=== PATIENT | female | born 1995 | race Hispanic/Latino ===

== ENCOUNTER 2016-12-17 10:11 | Inpatient (IN) | payer OTHER ==
[~2016-12-17] VITALS: Ht 154.9 cm; Wt 54.4 kg
[2016-12-17] VITALS (15 sets, daily range): BP systolic 114–142; BP diastolic 73–99
[2016-12-17] MEDS ORDERED: D5 LR IV SOLUTION 1,000 ML IV ONE (10:14)
[2016-12-17] MEDS ORDERED: OXYTOCIN/NORMAL SALINE 500 ML IV ONE (11:27)
[2016-12-17] MEDS ORDERED: KETOROLAC 30 MG/ML VIAL ONE (11:28)
[2016-12-17] MEDS: KETOROLAC 30 MG/ML VIAL IVP SCH ×2 (11:30→20:17)
[2016-12-17] MEDS ORDERED: OXYTOCIN/NORMAL SALINE 500 ML IV SCH ×2 (11:39)
[2016-12-17] MEDS ORDERED: WITCH HAZEL(TUCKS) 40 EA JAR TOP PRN (11:45)
[2016-12-17] MEDS ORDERED: BENZOCAINE/MENTHOL (DERMOPLAST) 56 ML CAN TP PRN (11:45)
[2016-12-17] MEDS ORDERED: TETANUS,DIPTH,PERTUSS P/F (BOOSTRIX) 0.5 ML VIAL IM ONE (11:45)
[2016-12-17] MEDS ORDERED: oxyCODONE/APAP 5/325MG (PERCOCET 5) TABLET PO PRN (11:45)
[2016-12-17] MEDS ORDERED: METHYLERGONOVINE 0.2 MG/ML (METHERGINE) AMP IM ONE (11:45)
[2016-12-17] MEDS ORDERED: MEASLES,MUMPS,RUBELLA 1 EA INJ SQ ONE (11:45)
[2016-12-17] MEDS ORDERED: METHYLERGONOVINE 0.2 MG/ML (METHERGINE) AMP ONE (11:47)
[2016-12-17 12:10] LABS: BASOPHILS % (AUTO) 0 % (0-10); EOSINOPHILS # (AUTO) 0.1 10^3/uL (0.0-0.3); EOSINOPHILS % (AUTO) 0 % (0-10); LYMPHOCYTES # (AUTO) 1.3 X 10^3 (1.0-4.0); LYMPHOCYTES % (AUTO) 7 % (12-44); MEAN CORPUSCULAR HEMOGLOBIN 30 PG (25-34); MEAN CORPUSCULAR HGB CONC 35 G/DL (32-36); MEAN CORPUSCULAR VOLUME 87 FL (80-99); MEAN PLATELET VOLUME 11.4 FL (7.4-10.4); MONOCYTES # (AUTO) 0.8 X 10^3 (0.0-1.0); MONOCYTES % (AUTO) 4 % (0-12); NEUTROPHILS # (AUTO) 16.6 X 10^3 (1.8-7.8); NEUTROPHILS % (AUTO) 89 % (42-75); PLATELET COUNT 226 10^3/uL (130-400); RED BLOOD COUNT 4.58 10^6/uL (4.35-5.85); RED CELL DISTRIBUTION WIDTH 13.2 % (10.0-14.5); WHITE BLOOD COUNT 18.8 10^3/uL (4.3-11.0)
[2016-12-17] MEDS ORDERED: PNV91TAB3 PO (12:43)
[2016-12-17] MEDS ORDERED: FLU TRIvalent (5 YOA+) 2016-17 (AFLURIA) 0.5 ML IM ONE (13:45)
[2016-12-17] MEDS: CATHETER FLUSH 10 ML SYR IV SCH ×2 (14:00→22:00)
[2016-12-17 16:03] LABS: ALBUMIN 3.1 G/DL (3.2-4.5); BILIRUBIN,DIRECT 0.2 MG/DL (0.0-0.3); BILIRUBIN,INDIRECT 0.2 MG/DL; BILIRUBIN,TOTAL 0.4 MG/DL (0.1-1.0); TOTAL PROTEIN 5.8 G/DL (6.4-8.2)
[2016-12-17 16:23] LABS: THYROID STIMULATING HORMONE 2.1 UIU/ML (0.35-4.94)
--- NOTE | 2016-12-17 17:04 | History & Physical ---
History and Physical this patient is a 21-year-old [place] female who presented to labor and delivery this morning in active labor. she was completely dilated with a bulging bag of vertex presentation admission. She had no local physician. She was noted to the area. She spoke no German. A male friend of a friend accompanied her and interpreted. Gave reported having care in [facility], and reported no problems with the other than an episode of contractions that resolved. The patient was writhing in pain. An IV was placed. The delivery as I was in the local physician on-call for patient with no local physician. Exam was performed finding a completely dilated cervix with a bulging bag vertex presentation at the +1 station. Cervix was 100 percent effaced. monitor showed contractions every 3-4 minutes. There was variable deceleration with a contraction. Otherwise the heart rate pattern was reassuring. Amniotomy was performed with the moderate stained meconium fluid. The patient pushed with the next 2 or 3 contractions promptly delivering a viable female over the perineum sustained a second-degree laceration. The was bulb suctioned on delivery of the head and again on completion of delivery. Infant had spontaneous cry was quickly pink moved all extremities had excellent tone and reflexes. The heart rate was quickly over 100 on delivery. The patient requested that the baby be taken to the warmer which was done. Dr. David was available shortly after delivery to manage the . see delivery note for balance of the details. No lab work are records were available for this patient. Allergies were none Medications reported were none Past medical history is unclear as the patient did not speak German and her friend did not know Past obstetric history included 1 term spontaneous vaginal delivery Surgical history was unclear as the friend did not know Family history is unknown to me Social history is unknown to make . the patient is well-developed well-nourished [place] female who was in acute distress in advanced labor HEENT exam appeared normal Neck appeared supple Abdomen was gravid Extremities show no clubbing or cyanosis. Pelvic exam is as noted above. the patient promptly delivered a term spontaneous vaginal female infant - see the delivery note Laboratory Tests Test 12/17/16 11:49 12/17/16 16:50 Range/Units Alanine Aminotransferase (ALT/SGPT) 19 0-55 U/L Albumin 3.1 L 3.2-4.5 G/DL Alkaline Phosphatase 281 H 40-136 U/L Aspartate Amino Transf (AST/SGOT) 26 5-34 U/L Basophils # (Auto) 0.0 0.0-0.1 10^3/uL Basophils (%) (Auto) 0 0-10 % Direct Bilirubin 0.2 0.0-0.3 MG/DL Eosinophils # (Auto) 0.1 0.0-0.3 10^3/uL Eosinophils (%) (Auto) 0 0-10 % Hematocrit 40 35-52 % Hemoglobin 13.8 11.5-16.0 G/DL Indirect Bilirubin 0.2 MG/DL Lymphocytes # (Auto) 1.3 1.0-4.0 X 10^3 Lymphocytes (%) (Auto) 7 L 12-44 % Mean Corpuscular Hemoglobin 30 25-34 PG Mean Corpuscular Hemoglobin Concent 35 32-36 G/DL Mean Corpuscular Volume 87 80-99 FL Mean Platelet Volume 11.4 H 7.4-10.4 FL Monocytes # (Auto) 0.8 0.0-1.0 X 10^3 Monocytes (%) (Auto) 4 0-12 % Neutrophils # (Auto) 16.6 H 1.8-7.8 X 10^3 Neutrophils (%) (Auto) 89 H 42-75 % Platelet Count 226 130-400 10^3/uL Red Blood Count 4.58 4.35-5.85 10^6/uL Red Cell Distribution Width 13.2 10.0-14.5 % Thyroid Stimulating Hormone (TSH) 2.10 0.35-4.94 UIU/ML Total Bilirubin 0.4 0.1-1.0 MG/DL Total Protein 5.8 L 6.4-8.2 G/DL White Blood Count 18.8 H 4.3-11.0 10^3/uL Lab work is as noted Vital Signs Date Time Temp Pulse Resp B/P Pulse Ox O2 Delivery O2 Flow Rate FiO2 12/17/16 13:13 78 127/83 Room Air 12/17/16 12:43 81 131/87 Room Air 12/17/16 12:35 82 18 132/84 Room Air 12/17/16 12:31 84 141/96 Room Air 12/17/16 12:15 83 133/99 Room Air 12/17/16 12:00 97.2 80 18 134/89 Room Air 12/17/16 11:45 80 18 134/89 Room Air 12/17/16 11:30 80 124/80 Room Air 12/17/16 11:15 97.7 82 18 124/83 Room Air 12/17/16 11:00 78 120/81 Room Air 12/17/16 10:45 83 130/87 Room Air 12/17/16 10:27 94 18 142/86 Room Air Vitals are as noted Assessment and plan term with no local physician in advanced labor with delivery eminent that has now been accomplished. Patient currently is several hours and is ambulating and voiding. Her infant has been transferred to [facility] patient will be allowed discharge this evening or in the morning as she prefers precipitous term spontaneous vaginal delivery at 40 weeks and 4 days Allergies and Home Medications Allergies Coded Allergies: No Known Drug Allergies (Unverified , 12/17/16) Home Medications Pnv95/Ferrous Fumarate/FA 1 Each Tablet 1 EACH PO DAILY (Reported) Clinical Quality Measures DVT/VTE Risk/Contraindication: RFS Level Per Nursing on Admit: 0=No Risk/No VTE PPX LYDIA REYES MD Dec 17, 2016 5:04 pm
[2016-12-17] MEDS ORDERED: OXYC-471 PO (17:05)
[2016-12-17] MEDS ORDERED: IBUP-1780 PO (17:05)
[2016-12-17] MEDS ORDERED: DOCU100C37 PO (17:05)
--- NOTE | 2016-12-17 17:07 | Discharge Instructions ---
Discharge Instructions Discharge Medications New, Converted or Re-Newed RX: RX on Chart Patient Instructions Patient Instructions: as directed Return to The Hospital For: as directed Activity & Diet Discharge Diet: No Restrictions Activity as Tolerated: No Orders-Post D/C & Referrals Follow Up Appt: Call to make follow up appt. for patient in 4 weeks with my clinic Activity Per routine post vaginal delivery instructions. Diet as tolerated Patient may shower or tub bathe as desired. LYDIA REYES MD Dec 17, 2016 5:06 pm
[2016-12-17] MEDS: DOCUSATE SODIUM 100 MG (COLACE) CAP PO SCH (20:17)
[2016-12-18 03:26] VITALS: BP 106/71
[2016-12-18] MEDS: KETOROLAC 30 MG/ML VIAL IVP SCH (03:26)
[2016-12-18] MEDS: CATHETER FLUSH 10 ML SYR IV SCH (03:26)
[2016-12-18 08:00] VITALS: BP 125/84
[2016-12-18] MEDS: DOCUSATE SODIUM 100 MG (COLACE) CAP PO SCH (08:19)
--- NOTE | 2016-12-18 10:34 | Progress Note-Standard ---
Standard Progress Note Progress Notes/Assess & Plan Progress/Assessment & Plan patient without complaint. She is ambulating, voiding, tolerating by mouth well. Laboratory Tests Test 12/17/16 11:49 12/17/16 16:50 Range/Units Alanine Aminotransferase (ALT/SGPT) 19 0-55 U/L Albumin 3.1 L 3.2-4.5 G/DL Alkaline Phosphatase 281 H 40-136 U/L Aspartate Amino Transf (AST/SGOT) 26 5-34 U/L Basophils # (Auto) 0.0 0.0-0.1 10^3/uL Basophils (%) (Auto) 0 0-10 % Direct Bilirubin 0.2 0.0-0.3 MG/DL Eosinophils # (Auto) 0.1 0.0-0.3 10^3/uL Eosinophils (%) (Auto) 0 0-10 % Hematocrit 40 35-52 % Hemoglobin 13.8 11.5-16.0 G/DL Indirect Bilirubin 0.2 MG/DL Lymphocytes # (Auto) 1.3 1.0-4.0 X 10^3 Lymphocytes (%) (Auto) 7 L 12-44 % Mean Corpuscular Hemoglobin 30 25-34 PG Mean Corpuscular Hemoglobin Concent 35 32-36 G/DL Mean Corpuscular Volume 87 80-99 FL Mean Platelet Volume 11.4 H 7.4-10.4 FL Monocytes # (Auto) 0.8 0.0-1.0 X 10^3 Monocytes (%) (Auto) 4 0-12 % Neutrophils # (Auto) 16.6 H 1.8-7.8 X 10^3 Neutrophils (%) (Auto) 89 H 42-75 % Platelet Count 226 130-400 10^3/uL Red Blood Count 4.58 4.35-5.85 10^6/uL Red Cell Distribution Width 13.2 10.0-14.5 % Thyroid Stimulating Hormone (TSH) 2.10 0.35-4.94 UIU/ML Total Bilirubin 0.4 0.1-1.0 MG/DL Total Protein 5.8 L 6.4-8.2 G/DL White Blood Count 18.8 H 4.3-11.0 10^3/uL Ur Tricyclic Antidepressants Screen NEGATIVE NEGATIVE Urine Amphetamines Screen NEGATIVE NEGATIVE Urine Barbiturates Screen NEGATIVE NEGATIVE Urine Benzodiazepines Screen NEGATIVE NEGATIVE Urine Cannabinoids Screen NEGATIVE NEGATIVE Urine Cocaine Screen NEGATIVE NEGATIVE Urine Methadone Screen NEGATIVE NEGATIVE Urine Methamphetamines Screen NEGATIVE NEGATIVE Urine Opiates Screen NEGATIVE NEGATIVE Urine Oxycodone Screen POSITIVE H NEGATIVE Urine Phencyclidine Screen NEGATIVE NEGATIVE Urine Propoxyphene Screen NEGATIVE NEGATIVE Vital Signs Date Time Temp Pulse Resp B/P Pulse Ox O2 Delivery O2 Flow Rate FiO2 12/18/16 08:00 98.1 70 18 125/84 100 Room Air 12/18/16 03:26 97.4 73 18 106/71 97 Room Air 12/17/16 23:35 97.4 71 18 114/73 98 Room Air 12/17/16 20:17 97.9 83 18 124/84 99 Room Air 12/17/16 15:00 97.8 82 18 116/77 98 Room Air 12/17/16 13:13 78 127/83 Room Air 12/17/16 12:43 81 131/87 Room Air 12/17/16 12:35 82 18 132/84 Room Air 12/17/16 12:31 84 141/96 Room Air 12/17/16 12:15 83 133/99 Room Air 12/17/16 12:00 97.2 80 18 134/89 Room Air 12/17/16 11:45 80 18 134/89 Room Air 12/17/16 11:30 80 124/80 Room Air 12/17/16 11:15 97.7 82 18 124/83 Room Air 12/17/16 11:00 78 120/81 Room Air 12/17/16 10:45 83 130/87 Room Air Vital signs are stable. Patient afebrile. Fundus is firm below the umbilicus and nontender. Extreme show no clubbing or cyanosis. There is no Homans sign. Assessment and plan day number 1 status post term spontaneous vaginal delivery at 40+ weeks gestation. This patient's baby has been transferred to [place]. Patient will be discharged so that she might visit her baby. Final Diagnosis term spontaneous vaginal delivery at 40+ weeks LYDIA REYES MD Dec 18, 2016 10:33 am
[2016-12-18] MEDS ORDERED: TETANUS,DIPTH,PERTUSS P/F (BOOSTRIX) 0.5 ML VIAL IM ONE (11:11)
[2016-12-18] MEDS ORDERED: FLU TRIvalent (5 YOA+) 2016-17 (AFLURIA) 0.5 ML IM ONE (11:14)
[2016-12-18] MEDS ORDERED: IBUPROFEN 800 MG (MOTRIN) TAB PO SCH (11:45)
[2016-12-18 12:25] VITALS: BP 125/84
--- NOTE | 2016-12-19 14:48 | PROCEDURE REPORT ---
PROCEDURE PHYSICIAN: LYDIA REYES DATE OF DELIVERY: 12/17/2016 The patient delivered by apparent term spontaneous vaginal delivery of a viable female with Apgars of 8 and 9 at one and five minutes respectively. The infant weighed 7 pounds 11 ounces. Cord blood was obtained that value was not available to me for the pH. Delivery time was 1015. The patient delivered by term spontaneous vaginal delivery viable female over a second-degree perineal laceration under no analgesia. The presented completely dilated, had a precipitous delivery. I was called for delivery management as I was the no local physician for patient physician incident response specialist. The patient was found in the LDR room, writhing in pain completely dilated. An IV had just been placed. The patient was feeling a strong urge to push and was apparently doing so. She did not speak [place]. She had a friend with her that interpreted. The patient had amniotomy performed with moderate amniotic fluid meconium changes. The patient pushed 3 times and delivered a viable female infant over a second-degree perineal laceration. The infant was bulb suctioned on delivery of the head again on completion of delivery. The cord was doubly clamped and the taken to the warmer as the patient did not wish to hold the baby at that time. Dr. David was on hand and managed the baby from this point. The had Apgars of 8 and 9 at one and five minutes respectfully. Weight was 7 pounds 11 ounces. time was 1015. Cord blood gas was obtained. The cord bloods were obtained including a cord gas pH. The placenta delivered spontaneously Pined[place]. It was a heavily calcified but otherwise normal. It was sent to pathology for permanent section. The cervix, vagina, rectum and perineum were examined and found intact except for the peritoneal laceration of the second-degree that was repaired with a single suture of 3-0 Vicryl under local analgesia using 1% lidocaine with epinephrine in her perineum. Sponge and needle counts were correct on completion of delivery and repair. Estimated blood loss was around 150 mL for the delivery and repair. The patient tolerated delivery and repair well and remained in the LDR for recovery. The was taken to the nursery under the care of Dr. David. Job ID: [id number] Dictated Date: 12/17/2016 16:55:08 Modeling Director Date: 12/19/2016 14:42:55 / erwin
[2016-12-20 14:26] LABS: RAPID PLASMA REAGIN Non Reactive
[2016-12-21 07:54] LABS: HIV 1/2 INTERP See Footnote; HIV AG AB SCREEN Non-Reactive (Non-Reactive)
== END 2016-12-18 12:25 | disposition home or self-care (01) | DRG 775 ==
LOC: WSo 10:11 → LDRP 10:14 → WSo 10:20 → LDRP 14:49 → WS 17:35
PROVIDERS: ADMIT Obstetrics & Gynecology; ATTEND Obstetrics & Gynecology
PROC: 10E0XZZ Delivery of Products of Conception, External Approach (ICD-10-PCS; principal; 2016-12-17)
PROC: 0KQM0ZZ Repair Perineum Muscle, Open Approach (ICD-10-PCS; 2016-12-17)
DX: O48.0 Post-term pregnancy (principal); O70.1 Second degree perineal laceration during delivery; O76 Abnormality in fetal heart rate and rhythm complicating labor and delivery; O77.0 Labor and delivery complicated by meconium in amniotic fluid; O62.3 Precipitate labor; Z3A.40 40 weeks gestation of pregnancy; Z37.0 Single live birth; Z23 Encounter for immunization
CPT/HCPCS: 36415; 80076; 80306; 84443; 85025; 86592; 86703; 86762; 86780; 86850; 86900; 86901; 88307; 90715; 99212

== ENCOUNTER → 2017-06-08 | Outpatient (CLI) | payer SELFPAY ==
[~2017-06-08] MED LIST: DOCU100C37 PO; IBUP-1780 PO; OXYC-471 PO; PNV91TAB3 PO
== END ==
LOC: RAD 15:53
PROVIDERS: ATTEND Family Medicine
DX: Z34.80 Encounter for supervision of other normal pregnancy, unspecified trimester (principal); Z3A.00 Weeks of gestation of pregnancy not specified; Z53.29 Procedure and treatment not carried out because of patient's decision for other reasons

== ENCOUNTER → 2017-06-14 | Outpatient (CLI) | payer OTHER ==
--- NOTE | 2017-06-14 18:45 | Diagnostic Imaging Report ---
INDICATION: Uncertain dates. TECHNIQUE: Multiple real-time grayscale images were obtained over the gravid uterus. COMPARISON: None. COMPARISON: There are no prior studies available for comparison. FINDINGS: There is a single live fetus in variable presentation. heart motion was noted, and a rate of 138 BPM was recorded. The crown-rump length suggests the estimated gestational age is 15 weeks 5 days, +/-1 week. There were no obvious abnormalities identified. However, it may prove worthwhile to have a short-term (4-6 week) followup ultrasound exam for a more sensitive evaluation of the anatomy. The placenta is posterior, and there is no previa. The amniotic fluid volume is within normal limits. The cervix was identified and measures 4.2 CM in length. IMPRESSION: 1. There is a single live fetus of approximately 15 weeks 5 days gestation, +/-1 week. The EDC is December 21, 2017. 2. There were no obvious abnormalities identified. Recommendations as above. 3. The growth parameters are fairly uniform. Biometrical measurements are as follows: Biparietal 3.26 cm, age 16 weeks 2 days. Head circumference 11.79 cm, age 15 weeks 6 days. Abdominal circumference 8.97 cm, age 15 weeks 2 days. Femur length 1.74 cm, age 15 weeks 2 days. Sonographic estimate age: 15 weeks 5 days. Sonographic estimated date of delivery: 12/01/2017. Estimated Weight: 119 gm (+/- 17 gm). LMP percentile: N/A%. heart rate: 138 beats per minute. number: 1 of 1. Dictated by: Dictated on workstation # [id number]
== END ==
LOC: RAD 10:17
PROVIDERS: ATTEND Family Medicine
DX: Z36 Encounter for antenatal screening of mother (principal); Z3A.15 15 weeks gestation of pregnancy
CPT/HCPCS: 76805

== ENCOUNTER → 2017-07-28 | Outpatient (CLI) | payer OTHER ==
--- NOTE | 2017-07-28 16:39 | Diagnostic Imaging Report ---
INDICATION: survey. TECHNIQUE: Multiple real-time grayscale images were obtained over the gravid uterus. COMPARISON: 06/14/2017. FINDINGS: heart rate is 138 beats per minute. The cervix is 4.5 cm in length and is closed. The placenta is posterior with no placenta previa. The posterior fossa, lateral ventricles, stomach, urinary bladder, cord insertion, and the spine appear unremarkable. The three-vessel cord is not well evaluated due to position. The four-chamber view appears unremarkable. Biometrical measurements are as follows: Biparietal 5.15 cm, age 21 weeks 5 days. Head circumference 18.836 cm, age 21 weeks 1 days. Abdominal circumference 17.6 cm, age 22 weeks 4 days. Femur length 3.6 cm, age 21 weeks 3 days. Sonographic estimate age: 21 weeks 5 days. Sonographic estimated date of delivery: 12/03/2017. Estimated Weight: 461 gm (+/- 67 gm). LMP percentile: 39%. heart rate: 138 beats per minute. number: 1 of 1. IMPRESSION: Follow-up study within a few weeks is recommended to reevaluate three-vessel cord, not well seen on this exam. Dictated by: Dictated on workstation # [id number]
== END ==
LOC: RAD 14:25
PROVIDERS: ATTEND Family Medicine
DX: Z36.87 Encounter for antenatal screening for uncertain dates (principal); Z3A.21 21 weeks gestation of pregnancy
CPT/HCPCS: 76805

== ENCOUNTER 2017-11-30 03:31 | Inpatient (IN) | payer SELFPAY ==
[~2017-11-30] VITALS: Ht 160 cm; Wt 59.0 kg
[2017-11-30] VITALS (16 sets, daily range): BP systolic 106–131; BP diastolic 64–87
--- NOTE | 2017-11-30 04:05 | ED GU-Female ---
General Stated Complaint: GAVE Source: patient Exam Limitations: no limitations History of Present Illness Date Seen by Provider: Nov 30, 2017 Time Seen by Provider: 03:32 Initial Comments Arrived via POV after having precipitous delivery in route to the hospital. Patient lives in [place] and was on the way here when she apparently had her baby precipitously at about 0310. On the way here she did clean up the baby. Placenta was apparently delivered as well. Does complain of some mild lower abdominal pain. Baby is pink and breathing on its own. Timing/Duration: this afternoon Severity/Quality: moderate, cramping (uterine) Location: vaginal (pain) Allergies and Home Medications Allergies Coded Allergies: No Known Drug Allergies (Unverified , 12/17/16) Home Medications Docusate Sodium 100 Mg Capsule, 100 MG PO BID, #60 Prescribed by: LYDIA PEÑA on 12/17/16 1705 Ibuprofen 800 Mg Tablet, 800 MG PO Q6H, #60 Prescribed by: LYDIA PEÑA on 12/17/16 1705 Oxycodone HCl/Acetaminophen 1 Each Tablet, 1-2 TAB PO Q3H PRN for MODERATE TO SEVERE PAIN, #60 Prescribed by: LYDIA PEÑA on 12/17/16 1705 Pnv95/Ferrous Fumarate/FA 1 Each Tablet, 1 EACH PO DAILY, (Reported) Constitutional: see HPI, No chills, No fever Respiratory: no symptoms reported Cardiovascular: no symptoms reported Gastrointestinal: see HPI : No Expected Date of Delivery: Nov 30, 2017 All Other Systemes Reviewed Negative Unless Noted: Yes Past Qiltbew-Xxyuwp-Awfbie Hx Patient Social History Alcohol Use: Denies Use Recreational Drug Use: No Smoking Status: Never a Smoker Recent Foreign Travel: No Contact w/Someone Who Travel: No Recent Hopitalizations: No Immunizations Up To Date PED Vaccines UTD: No Seasonal Allergies Seasonal Allergies: No Surgeries History of Surgeries: No Respiratory History of Respiratory Disorde: No Cardiovascular History of Cardiac Disorders: No Neurological History of Neurological Disord: No Reproductive System Sexually Transmitted Disease: No HIV/AIDS: No Female Reproductive Disorders: Denies Genitourinary History of Genitourinary Disor: No Gastrointestinal History of Gastrointestinal Di: No Musculoskeletal History of Musculoskeletal Dis: No Endocrine History of Endocrine Disorders: No HEENT History of HEENT Disorders: No Cancer History of Cancer: No Psychosocial History of Psychiatric Problem: No Integumentary History of Skin or Integumenta: No Blood Transfusions History of Blood Disorders: No Adverse Reaction to a Blood Tr: No Reviewed Nursing Assessment Reviewed/Agree w Nursing PMH: Yes Family Medical History Significant Family History: No Pertinent Family Hx Physical Exam Vital Signs Vital Signs - First Documented 11/30/17 03:31 Temp 98.1 Pulse 99 Resp 20 B/P (MAP) 119/81 (94) Pulse Ox 98 O2 Delivery Room Air Capillary Refill : General Appearance: WD/WN, no apparent distress Neck: full range of motion, supple Cardiovascular: regular rate, rhythm, no murmur Respiratory: lungs clear, normal breath sounds Gastrointestinal: soft, tenderness (uterine tenderness noted. Initially somewhat boggy but firmed with fundal massage) Pelvic: vaginal bleeding, other (vaginal bleeding noted with some products of conception at the introitus. These were easily removed and appears to be saclike structure. Majority of placenta noted with baby that was already delivered.) Extremities: non-tender, normal inspection Neurologic/Psychiatric: alert, oriented x 3 Skin: normal color, warm/dry Progress/Results/Core Measures Suspected Sepsis SIRS Temperature: Pulse: Respiratory Rate: Blood Pressure / Mean: Results/Orders Vital Signs/I&O Vital Sign - Last 12Hours 11/30/17 11/30/17 11/30/17 11/30/17 03:31 03:42 03:52 03:55 Temp 98.1 Pulse 99 97 101 98 Resp 20 20 20 20 B/P (MAP) 119/81 (94) 122/83 (96) 125/87 (100) Pulse Ox 98 98 97 98 O2 Delivery Room Air Room Air Room Air Room Air 11/30/17 03:56 Pulse 98 Resp 20 B/P (MAP) 121/83 (96) Pulse Ox 98 O2 Delivery Room Air Capillary Refill : Progress Note : Progress Note Seen ON arrival by POV. Wheelchair to trauma room. Male baby in mother's arms. Baby pink and breathing with cord clamped by nursing after arrival to the ER trauma bay. Placenta and cord still connected to baby. Mother did have some retained products at vaginal introitus which were easily removed. They were delivery nurses called upon patient's arrival and arrived at 0335. They assisted with evaluation and management of both baby and mother. Pitocin initiated by nursing and this did significantly firm of the uterus with decreased bleeding. Mother's vital signs normal and in no distress. Transferred to OB floor and will be under the care of Dr. Glez at 0355. I did talk with Dr. Glez after transfer upstairs and pass along information about visit here. Departure Impression Impression: Primary Impression: Precipitous delivery, delivered (current hospitalization) Disposition: ADMITTED INPATIENT Condition: Stable Admissions Decision to Admit Reason: Admit from ER (General) Decision to Admit/Date: Nov 30, 2017 Time/Decision to Admit Time: 03:55 Departure-Patient Inst. Referrals: JERMAINE PEDRO MD (PCP/Family) Primary Care Physician ESEQUIEL VELASCO MD Nov 30, 2017 04:05
[2017-11-30] MEDS ORDERED: fentaNYL INJECTION 100 MCG/2 ML AMP ONE (04:38)
[2017-11-30] MEDS ORDERED: MISOPROSTOL 200 MCG (CYTOTEC) TABLET ONE (04:39)
[2017-11-30] MEDS ORDERED: OXYTOCIN/NORMAL SALINE 500 ML IV SCH ×2 (05:06→07:26)
[2017-11-30] MEDS ORDERED: TETANUS,DIPTH,PERTUSS P/F (BOOSTRIX) 0.5 ML VIAL IM ONE (05:15)
[2017-11-30] MEDS ORDERED: MISOPROSTOL 200 MCG (CYTOTEC) TABLET PR ONE (05:15)
[2017-11-30] MEDS ORDERED: fentaNYL INJECTION 100 MCG/2 ML AMP IV ONE (05:15)
[2017-11-30] MEDS ORDERED: BENZOCAINE/MENTHOL (DERMOPLAST) 56 ML CAN TP PRN (05:15)
[2017-11-30] MEDS ORDERED: WITCH HAZEL(TUCKS) 40 EA JAR TOP PRN (05:15)
[2017-11-30 05:18] LABS: BASOPHILS % (AUTO) 0 % (0-10); EOSINOPHILS # (AUTO) 0.2 10^3/uL (0.0-0.3); EOSINOPHILS % (AUTO) 1 % (0-10); HEMATOCRIT 36 % (35-52); HEMOGLOBIN 12.1 G/DL (11.5-16.0); LYMPHOCYTES # (AUTO) 1.8 X 10^3 (1.0-4.0); LYMPHOCYTES % (AUTO) 11 % (12-44); MEAN CORPUSCULAR HEMOGLOBIN 28 PG (25-34); MEAN CORPUSCULAR HGB CONC 34 G/DL (32-36); MEAN CORPUSCULAR VOLUME 82 FL (80-99); MONOCYTES % (AUTO) 7 % (0-12); NEUTROPHILS # (AUTO) 12.9 X 10^3 (1.8-7.8); NEUTROPHILS % (AUTO) 81 % (42-75); PLATELET COUNT 265 10^3/uL (130-400); RED BLOOD COUNT 4.35 10^6/uL (4.35-5.85); RED CELL DISTRIBUTION WIDTH 14.6 % (10.0-14.5)
--- NOTE | 2017-11-30 05:20 | History & Physical-OB ---
OB - Chief Complaint & HPI Date/Time Date of Admission: Date of Admission: Nov 30, 2017 at 04:10 Time Seen by Provider: 04:25 Chief Complaint/History OB-Reason for Admission/Chief: Precipitous vaginal delivery in car Hx : 3 Hx Para: 2 Expected Date of Delivery: Dec 01, 2017 Gestational Age in Weeks: 39 Gestational Age in Days: 6 Other reason for admission: Patient presented to [facility] after precipitously delivering in the car en route to the hospital. Patient reports she began having contractions about 1 am , her water broke just prior to delivering. S.O help to deliver the baby in the car. Mom reports there was a nuchal cord which she removed after delivery. They reported baby was vigorous at brith. Baby was pink and vigorous upon presentation to the ED. Allergies and Home Medications Allergies Coded Allergies: No Known Drug Allergies (Unverified , 12/17/16) Home Medications Pnv95/Ferrous Fumarate/FA 1 Each Tablet, 1 EACH PO DAILY, (Reported) OB - History Hx of Present Care: Yes Ultrasounds: Normal mid trimester US Obstetrical Complications: None Medical Complications: None Information Induced Hypertension: No Maternal Gestational Diabetes: No Hemorrhage: No Obstetrical History Hx : 3 Hx Para: 2 Hx # Term Pregnancies: 2 Number of Living Children: 2 Hx Termination: No Hx Multiple Gestation: No Hx Ectopic : No Hx Stillbirth: No Hx Complication: No Hx Induced Hypertens: No Hx Maternal Gestational Diabet: No Hx Hemorrhage: No Delivery History Hx Dystocia: No Hx Forceps Assisted Delivery: No Hx Vacuum Extraction Assisted: No Hx Placenta Abnormality: No Hx Distress: No Hx Large For Gestational Age I: No Hx Small for Gestational Age I: No Hx Section: No Hx Vaginal Delivery Post C-Sec: No Hx Blood Disorders: No Adverse Rxn to Tranfusion: No Patient Past Medical History denies Social History/Family History HIV/AIDS: No Recent Infectious Disease Expo: No Sexually Transmitted Disease: No Alcohol Use: Denies Use Recreational Drug Use: No Immunizations Hepatitis A: No Hepatitis B: No Rubella: immune RPR/VDRL: Negative GBS Status: Negative HBsAG: Negative OB - Admission Exam Physical Exam Vitals: Vital Signs 11/30/17 11/30/17 03:31 03:56 Temp 98.1 Pulse 98 Resp 20 B/P (MAP) 121/83 (96) Pulse Ox 98 O2 Delivery Room Air Abdomen: Soft (uterus firm, displaced to maternal right side) OB - Assessment/Plan/Diagnosis Plan Other Plan Pt doing well after precipitous delivery outside hospital. Placenta delivered prior to arrival to the hospital. There were some retained membranes which were removed by Dr. Molina in the ED, pt was started on Pitocin in the ED w/ firm uterus. On my exam, uterus was firm, displaced to the right side. Perineum intact w/o laceration noted. Steady vaginal bleeding noted. MEU revealed large clot in the lower uterine section w/ small amount of retained membranes which were removed manually. Bleeding slowed and uterus was firm and midline. Cytotec 800mcg give rectally. Mother and baby doing well. ProblemList: Precipitous delivery, delivered (current hospitalization) DORIS JOSEPH DO Nov 30, 2017 05:20
[2017-11-30] MEDS ORDERED: CATHETER FLUSH 10 ML SYR IV SCH (06:00)
[2017-11-30] MEDS: IBUPROFEN 600 MG (MOTRIN) TAB PO SCH ×3 (06:35→18:08)
[2017-12-01 00:21] VITALS: BP 107/72
[2017-12-01] MEDS: IBUPROFEN 600 MG (MOTRIN) TAB PO SCH ×2 (00:21→05:54)
[2017-12-01 05:52] LABS: BASOPHILS # (AUTO) 0.1 10^3/uL (0.0-0.1); BASOPHILS % (AUTO) 0 % (0-10); EOSINOPHILS # (AUTO) 0.4 10^3/uL (0.0-0.3); EOSINOPHILS % (AUTO) 3 % (0-10); HEMATOCRIT 30 % (35-52); HEMOGLOBIN 10.1 G/DL (11.5-16.0); LYMPHOCYTES # (AUTO) 2.9 X 10^3 (1.0-4.0); LYMPHOCYTES % (AUTO) 24 % (12-44); MEAN CORPUSCULAR HEMOGLOBIN 28 PG (25-34); MEAN CORPUSCULAR HGB CONC 33 G/DL (32-36); MEAN CORPUSCULAR VOLUME 83 FL (80-99); MEAN PLATELET VOLUME 10.5 FL (7.4-10.4); MONOCYTES # (AUTO) 0.8 X 10^3 (0.0-1.0); MONOCYTES % (AUTO) 7 % (0-12); NEUTROPHILS # (AUTO) 7.7 X 10^3 (1.8-7.8); NEUTROPHILS % (AUTO) 66 % (42-75); PLATELET COUNT 246 10^3/uL (130-400); RED BLOOD COUNT 3.65 10^6/uL (4.35-5.85); RED CELL DISTRIBUTION WIDTH 14.8 % (10.0-14.5); WHITE BLOOD COUNT 11.8 10^3/uL (4.3-11.0)
[2017-12-01 05:54] VITALS: BP 99/63
[2017-12-01 08:15] VITALS: BP 104/72
--- NOTE | 2017-12-01 09:43 | Discharge Summary ---
Diagnosis/Chief Complaint Date of Admission Nov 30, 2017 at 04:10 Date of Discharge Dec 01, 2017 Admission Diagnosis Admission Diagnosis Precipitous vaginal delivery at 39wk GA - born in car en route to the hospital Retained uterine clot w/ post- bleeding Discharge Diagnosis Precipitous vaginal delivery at 39wk GA - born in car en route to the hospital Retained uterine clot w/ post- bleeding s/p MEU w/ removal of clot and treatment w/ rectal cytotec mild post- anemia Discharge Summary-OBS Procedures None. Discharge Physical Examination Allergies: Coded Allergies: No Known Drug Allergies (Unverified , 12/17/16) Vitals & I&Os Vital Sign - Last 12Hours Date Time Temp Pulse Resp B/P (MAP) Pulse Ox O2 Delivery O2 Flow Rate FiO2 12/01/17 08:15 97.4 91 20 104/72 (83) Room Air 12/01/17 05:54 100 General Appearance: Alert Psych/Mental Status: Mood NL Hospital Course Routine post- care Labs Laboratory Tests 12/01/17 05:30: White Blood Count 11.8H, Red Blood Count 3.65L, Hemoglobin 10.1L, Hematocrit 30L , Mean Corpuscular Volume 83, Mean Corpuscular Hemoglobin 28, Mean Corpuscular Hemoglobin Concent 33, Red Cell Distribution Width 14.8H, Platelet Count 246, Mean Platelet Volume 10.5H, Neutrophils (%) (Auto) 66, Lymphocytes (%) (Auto) 24 , Monocytes (%) (Auto) 7, Eosinophils (%) (Auto) 3, Basophils (%) (Auto) 0, Neutrophils # (Auto) 7.7, Lymphocytes # (Auto) 2.9, Monocytes # (Auto) 0.8, Eosinophils # (Auto) 0.4H, Basophils # (Auto) 0.1 Discharge Instructions to patient/family Please see electronic discharge instructions given to patient. Discharge Medications Reviewed and agree with Discharge Medication list on patient's Discharge Instruction sheet Clinical Quality Measures DVT/VTE Risk/Contraindication: Risk Factor Score Per Nursin RFS Level Per Nursing on Admit: 1=Low/No VTE PPX Copy Copies To 1: JERMAINE PEDRO MD, LINDA K DO Dec 01, 2017 09:43
[2017-12-01] MEDS ORDERED: IBUP-1773 PO (09:44)
--- NOTE | 2017-12-01 09:46 | Discharge Instructions ---
Discharge Inst-[facility] Depart Medications New, Converted or Re-Newed RX: Call to Patients Pharmacy (or may take over the counter) New Medications: Ibuprofen (Ibuprofen) 600 Mg Tablet 600 MG PO Q6H PRN for CRAMPS, #90 TAB 0 Refills Continued Medications: Pnv95/Ferrous Fumarate/FA ( Caplet) 1 Each Tablet 1 EACH PO DAILY, TAB Follow Up/Instructions Goal/Follow Up: Follow-up with Dr. Doyle in 6 wk Activity Activity: Activity as Tolerated Nothing Inside Vagina: No Douching, No [place], No Tampons Diet Discharge Diet: No Restrictions Symptoms to Report to : Bleeding Excessive, Fever Over 101 Degrees F, Vaginal Bleeding Increase, Vaginal Discharge Foul, Shortness of Breath For Any Problems or Questions: Contact Your Physician DORIS JOSEPH DO Dec 01, 2017 09:46
[2017-12-01] MEDS ORDERED: INFLUENZA TRIvalent 2017-2018 0.5 ML/45 MCG SYR IM ONE (11:48)
== END 2017-12-01 11:55 | disposition home or self-care (01) | DRG 769 ==
LOC: EDUNIT# 03:45 → ER 03:46 → LDRP 04:10 → OBSVTOIN 04:10 → LDRP 06:25
PROVIDERS: ADMIT Family Medicine; ATTEND Family Medicine
PROC: 10D17Z9 Manual Extraction of Products of Conception, Retained, Via Natural or Artificial Opening (ICD-10-PCS; principal; 2017-11-30)
DX: O72.2 Delayed and secondary postpartum hemorrhage (principal); O90.81 Anemia of the puerperium; D64.9 Anemia, unspecified; Z23 Encounter for immunization
CPT/HCPCS: 36415; 85025; 86900; 86901; 99284